=== PATIENT | female | born 1935 | race Caucasian/White ===

== ENCOUNTER 2016-10-20 15:36 | Emergency (ER) | payer MEDICARE, BC ==
[~2016-10-20] VITALS: Ht 157.5 cm; Wt 44.5 kg
[2016-10-20] MEDS ORDERED: LEVO25TA9 PO (15:55)
[2016-10-20] MEDS ORDERED: ESTROGEN (15:57)
--- NOTE | 2016-10-20 17:11 | NUR ---
Patient discharged to home in stable conditon. Written and verbal after care instructions given. Patient verbalizes understanding of instructions.PT WALKS IN STEADY GAIT, DENEIS ANY DIZZINESS, N/V OR ANY OTHER COMPLAIN AT THIS TIME.
[2016-10-20 17:16] VITALS: BP 103/66
== END 2016-10-20 17:22 | disposition home or self-care (01) ==
LOC: ER 15:36
DX: S09.90XA Unspecified injury of head, initial encounter (principal); R22.0 Localized swelling, mass and lump, head; Z88.6 Allergy status to analgesic agent; Z91.011 Allergy to milk products; W01.0XXA Fall on same level from slipping, tripping and stumbling without subsequent striking against object, initial encounter; Y93.89 Activity, other specified; Y99.8 Other external cause status; Y92.89 Other specified places as the place of occurrence of the external cause
CPT/HCPCS: 70450; A4663

== ENCOUNTER 2017-03-19 15:24 | Emergency (ER) | payer MEDICARE, BC ==
[~2017-03-19] VITALS: Ht 154.9 cm; Wt 44.0 kg
[~2017-03-19 15:24] MED LIST: ESTROGEN; LEVO25TA9 PO
[2017-03-19] MEDS ORDERED: TDAP DIPH,PERTUSS,TET VAC/PF 0.5 ML DISP.SYRIN IM ONE ×2 (15:45→16:01)
[2017-03-19] MEDS ORDERED: AMOXICILLIN-CLAVUL 500-125MG TABLET PO ONE (15:45)
[2017-03-19] MEDS ORDERED: AMOXICILLIN-CLAVUL 500-125MG TABLET ONE (16:01)
--- NOTE | 2017-03-19 16:16 | NUR ---
Patient discharged to home in stable conditon. Written and verbal after care instructions given. Patient verbalizes understanding of instructions.
[2017-03-19 16:17] VITALS: BP 154/88
== END 2017-03-19 16:18 | disposition home or self-care (01) ==
LOC: ER 15:25
DX: S61.259A Open bite of unspecified finger without damage to nail, initial encounter (principal); Z88.6 Allergy status to analgesic agent; W54.0XXA Bitten by dog, initial encounter; Y93.89 Activity, other specified; Y92.9 Unspecified place or not applicable; Y99.9 Unspecified external cause status
CPT/HCPCS: 12001; 73140; 90471; 90715; 99284; A4663

== ENCOUNTER 2017-03-21 09:55 | Emergency (ER) | payer MEDICARE, BC ==
[~2017-03-21] VITALS: Ht 152.4 cm; Wt 54.4 kg
--- NOTE | 2017-03-21 10:18 | NUR ---
pt is in room #2a. dr martell evaluated the pt.
--- NOTE | 2017-03-21 10:48 | NUR ---
pt was d/c to home. d/c instructions given to the pt.
--- NOTE | 2017-03-21 10:49 | NUR ---
pt's wound was re-checked by dr martell. no s/s of infection.
[2017-03-21 10:50] VITALS: BP 141/78
== END 2017-03-21 10:50 | disposition home or self-care (01) ==
LOC: ER 09:55
DX: S61.251D Open bite of left index finger without damage to nail, subsequent encounter (principal); W54.0XXD Bitten by dog, subsequent encounter; Z88.6 Allergy status to analgesic agent
CPT/HCPCS: 99283; A4663

== ENCOUNTER 2017-08-25 09:16 | Emergency (ER) | payer MEDICARE, BC ==
[~2017-08-25] VITALS: Ht 154.9 cm; Wt 44.0 kg
--- NOTE | 2017-08-25 10:40 | NUR ---
Patient discharged to home in stable conditon. Written and verbal after care instructions given. Patient verbalizes understanding of instructions.pt walks in steady gait, deneis any dizziness.
[2017-08-25 10:44] VITALS: BP 141/91
== END 2017-08-25 10:45 | disposition home or self-care (01) ==
LOC: ER 09:16
DX: S00.03XA Contusion of scalp, initial encounter (principal); Z88.5 Allergy status to narcotic agent; Z88.8 Allergy status to other drugs, medicaments and biological substances; Z79.899 Other long term (current) drug therapy; W01.10XA Fall on same level from slipping, tripping and stumbling with subsequent striking against unspecified object, initial encounter; Y93.89 Activity, other specified; Y92.89 Other specified places as the place of occurrence of the external cause; Y99.8 Other external cause status
CPT/HCPCS: 70450; A4663

== ENCOUNTER 2019-01-08 10:59 | Emergency (ER) | payer MEDICARE, BC ==
[~2019-01-08] VITALS: Ht 154.9 cm; Wt 44.0 kg
--- NOTE | 2019-01-08 11:20 | NUR ---
, at bedside to see and examine patient.
[2019-01-08] MEDS ORDERED: NEOMY/BACITRA/POLYMYXIN B OINT UD PACKET TP ONE ×2 (11:30→11:34)
[2019-01-08] MEDS ORDERED: ACETAMINOPHEN ES 500 MG TABLET PO ONE (11:30)
[2019-01-08] MEDS ORDERED: ACETAMINOPHEN ES 500 MG TABLET ONE (11:33)
--- NOTE | 2019-01-08 12:11 | NUR ---
Patient discharged to home in stable conditon. Written and verbal after care instructions given. Patient verbalizes understanding of instructions.
[2019-01-09] MEDS ORDERED: FAMO40TA71 PO (13:07)
[2019-01-09] MEDS ORDERED: ESTRACE VAG CREAM VG (13:07)
[2019-01-10] MEDS ORDERED: AMOX-430 PO (11:06)
== END 2019-01-08 12:12 | disposition home or self-care (01) ==
LOC: ER 10:59
DX: S51.011A Laceration without foreign body of right elbow, initial encounter (principal); S81.811A Laceration without foreign body, right lower leg, initial encounter; S60.052A Contusion of left little finger without damage to nail, initial encounter; S80.01XA Contusion of right knee, initial encounter; S00.81XA Abrasion of other part of head, initial encounter; Z88.5 Allergy status to narcotic agent; Z88.8 Allergy status to other drugs, medicaments and biological substances; Z79.899 Other long term (current) drug therapy; Z90.710 Acquired absence of both cervix and uterus; Z90.89 Acquired absence of other organs; W54.0XXA Bitten by dog, initial encounter; Y93.89 Activity, other specified; Y92.89 Other specified places as the place of occurrence of the external cause; Y99.8 Other external cause status
CPT/HCPCS: 73130; A4217; A4663; A9150

== ENCOUNTER 2019-01-09 11:48 | Inpatient (IN) | payer MEDICARE, BC ==
[~2019-01-09] VITALS: Ht 154.9 cm; Wt 44.5 kg
[2019-01-09] MEDS: LEVOTHYROXINE SODIUM 25 MCG TABLET PO SCH (07:00)
--- NOTE | 2019-01-09 12:00 | NUR ---
wound dressing cleaned and area cleansed with normal saline, no s/s of infection noted.
--- NOTE | 2019-01-09 12:16 | NUR ---
at bedside to examine wounds.
[2019-01-09] MEDS ORDERED: PIPERACILLIN SODIUM/TAZOBACTAM 3.375 G in IV DEXTROSE 5% 50 ML IV ONE (12:30)
[2019-01-09] MEDS ORDERED: PIPERACILLIN/TAZOBACTAM/D5W 50 ML IV ONE (12:36)
--- NOTE | 2019-01-09 12:43 | NUR ---
PAGED EPIC FOR PANEL CALL. AWAITING CALLBACK.
[2019-01-09 12:52] LABS: BASOPHILS % (AUTO) 0.5 % (0.0-2.0); EOSINOPHILS # (AUTO) 0.3 K/uL (0.0-0.7); EOSINOPHILS % (AUTO) 3.4 % (0.0-7.0); HEMATOCRIT 43.9 % (31.2-41.9); HEMOGLOBIN 14.9 g/dL (10.9-14.3); LYMPHOCYTES # (AUTO) 1.2 K/uL (20.0-40.0); LYMPHOCYTES % (AUTO) 14.4 % (20.5-51.5); MEAN CORPUSCULAR HEMOGLOBIN 31.4 uug (24.7-32.8); MEAN CORPUSCULAR HGB CONC 34 g/dL (32.3-35.6); MEAN CORPUSCULAR VOLUME 92.6 fL (75.5-95.3); MONOCYTES # (AUTO) 0.9 K/uL (2.0-10.0); MONOCYTES % (AUTO) 10.1 % (0.0-11.0); NEUTROPHILS % (AUTO) 71.6 % (38.5-71.5); PLATELET COUNT (AUTO) 147 K/uL (179-408); RED BLOOD CELL COUNT(AUTO) 4.73 MIL/uL (3.63-4.92); WHITE BLOOD COUNT (AUTO) 8.4 K/uL (3.8-11.8)
--- NOTE | 2019-01-09 12:54 | NUR ---
ER MD SPEAKING W/ EPIC MD ON PHONE RE PT'S ADMISSION.
[2019-01-09 13:00] LABS: ALANINE AMINOTRANSFERASE 14 U/L (14-59); ALKALINE PHOSPHATASE 90 U/L (50-136); ASPARTATE AMINOTRANSFERASE 13 U/L (15-37); BILIRUBIN,TOTAL 0.8 mg/dL (0.2-1.0); CARBON DIOXIDE 26 mmol/L (21-32); CHLORIDE 106 mmol/L (98-107); CREATININE 0.6 mg/dL (0.6-1.3); GLUCOSE 90 mg/dL (74-106); POTASSIUM 4.1 mmol/L (3.5-5.1); UREA NITROGEN, BLOOD 19 mg/dL (7-18)
[2019-01-09] MEDS ORDERED: NEOMY/BACITRA/POLYMYXIN B OINT UD PACKET TP ONE ×2 (13:06→13:15)
[2019-01-09] MEDS ORDERED: FAMO40TA71 PO (13:07)
[2019-01-09] MEDS ORDERED: ESTRACE VAG CREAM VG (13:07)
--- NOTE | 2019-01-09 13:50 | NUR ---
Received pt. via wheel chair. Pt. is alert oriented x4 IV in R forearm 20 gauge intact patent hep lock. Safety measures in place. Call light within reach. Will continue to monitor pt.
--- NOTE | 2019-01-09 13:53 | NUR ---
patient taken up via wheelchair, by Rubin Barron. vitals stable. no c/of pain IV zosyn completed.
[2019-01-09 15:24] VITALS: BP 149/74
--- NOTE | 2019-01-09 16:20 | NUR ---
Called Dr. Broderick office for orders for pt. No new orders at the moment. Will wait for orders from
[2019-01-09] MEDS ORDERED: MAGNESIUM HYDROXIDE 30 ML LIQUID UDC PO PRN (16:45)
[2019-01-09] MEDS ORDERED: Z GUARD REMEDY PASTE 57 GM TUBE TOP PRN (16:45)
[2019-01-09] MEDS ORDERED: ACETAMINOPHEN 325 MG TABLET PO PRN (16:45)
[2019-01-09] MEDS ORDERED: ONDANSETRON 4 MG/2 ML VIAL IV PRN (16:45)
[2019-01-09] MEDS ORDERED: ZOLPIDEM 5 MG TABLET PO PRN (16:45)
--- NOTE | 2019-01-09 19:00 | NUR ---
Pt. resting in bed alert oriented x4. IV in R forearm 20 gauge intact patent hep lock. Family at bedside. All needs met. Safety measures in place. Will endorse to PM nurse
[2019-01-09] MEDS ORDERED: VANCOMYCIN IV 750 MG in IV DEXTROSE 5% 250 ML IV SCH (19:30)
--- NOTE | 2019-01-09 19:34 | NUR ---
CLINICAL PHARMACY NOTE:VANCOMYCIN DOSING Request for vancomycin dosing on 83 y/o female 154.94cm 44.4kg for cellulitis Temp 98.6f BUN 19 Scr 0.6 WBC 8.4 also on Zosyn Start vancomycin 750mg ivpb q24h estimate trough 13. Will order trough prior to 4th dose. Will continue to monitor
--- NOTE | 2019-01-09 19:45 | NUR ---
PATIENT ALERT ORIENTED, NO SOB NO CHEST PAIN, NO COMPLAIN OF PAIN AT THIS TIME. FAMILY AT BEDSIDES, CONT TO MONITOR.
[2019-01-09 20:16] VITALS: BP 137/63
[2019-01-09] MEDS ORDERED: BACITRACIN/POLYMYXIN B OINT 15 GM TUBE TOP SCH (21:00)
[2019-01-09] MEDS: NEOMY/BACITRAC/POLYMI OINT 28.35 GM TUBE TOP SCH (21:39)
[2019-01-09] MEDS ORDERED: PIPERACILLIN SODIUM/TAZOBACTAM 3.375 G in IV DEXTROSE 5% 50 ML IV SCH (22:00)
[2019-01-09] MEDS: PIPERACILLIN/TAZOBACTAM/D5W 3.375 G in PREMIXED 1 EACH IV SCH (22:33)
[2019-01-10] MEDS ORDERED: diphenhydrAMINE 50 MG/1 ML VIAL IV PRN (00:15)
--- NOTE | 2019-01-10 00:17 | NUR ---
PATIENT COMPLAIN OF SCALP ITCHING AFTER VANCO MEDICATION WAS GIVEN, NOTIFY DR. WILSON WITH ORDER OF BENADRYL IV 25MG ONE TIME DOSE FOR ITCHING.
--- NOTE | 2019-01-10 00:30 | NUR ---
PATIENT WAS OFFERED BENADRYL FOR ITCHING OF THE SCALP, BUT PATIENT REFUSED THE MEDICATIONS STATED THAT SHE NOT ITCHING ANYMORE, CONT TO MONITOR.
[2019-01-10] MEDS: PIPERACILLIN/TAZOBACTAM/D5W 3.375 G in PREMIXED 1 EACH IV SCH (04:44)
[2019-01-10] MEDS: LEVOTHYROXINE SODIUM 25 MCG TABLET PO SCH (06:01)
[2019-01-10 06:21] LABS: CARBON DIOXIDE 25 mmol/L (21-32); CHLORIDE 108 mmol/L (98-107); CHOLESTEROL 139 mg/dL (<200); CREATININE 0.8 mg/dL (0.6-1.3); GLUCOSE 96 mg/dL (74-106); HDL CHOLESTEROL 67 mg/dL (40-60); MAGNESIUM 2.3 mg/dL (1.8-2.4); PHOSPHOROUS 4.2 mg/dL (2.5-4.9); POTASSIUM 3.8 mmol/L (3.5-5.1); TRIGLYCERIDES 40 MG/DL (30-150); UREA NITROGEN, BLOOD 19 mg/dL (7-18)
[2019-01-10 06:28] LABS: BASOPHILS % (AUTO) 0.5 % (0.0-2.0); EOSINOPHILS # (AUTO) 0.4 K/uL (0.0-0.7); EOSINOPHILS % (AUTO) 5.4 % (0.0-7.0); HEMATOCRIT 40.9 % (31.2-41.9); HEMOGLOBIN 13.9 g/dL (10.9-14.3); LYMPHOCYTES # (AUTO) 1.1 K/uL (20.0-40.0); LYMPHOCYTES % (AUTO) 15.6 % (20.5-51.5); MEAN CORPUSCULAR HEMOGLOBIN 31.5 uug (24.7-32.8); MEAN CORPUSCULAR HGB CONC 34 g/dL (32.3-35.6); MEAN CORPUSCULAR VOLUME 92.5 fL (75.5-95.3); MONOCYTES # (AUTO) 0.7 K/uL (2.0-10.0); MONOCYTES % (AUTO) 10.7 % (0.0-11.0); NEUTROPHILS # (AUTO) 4.6 K/uL (1.8-8.9); NEUTROPHILS % (AUTO) 67.8 % (38.5-71.5); PLATELET COUNT (AUTO) 141 K/uL (179-408); RED BLOOD CELL COUNT(AUTO) 4.42 MIL/uL (3.63-4.92); WHITE BLOOD COUNT (AUTO) 6.8 K/uL (3.8-11.8)
--- NOTE | 2019-01-10 07:17 | NUR ---
PATIENT SLEPT MOST OF THE NIGHT, NO FURTHER ITCHING OF THE SCALP NOTED AT THIS TIME. ASSISTED WITH TOILETING, NO COMPLAIN OF PAIN AT THIS TIME. CONT TO MONITOR.
--- NOTE | 2019-01-10 08:00 | NUR ---
Received patient awake in bed. AAOx4. In no acute distress. IV on R FA receiving IV zosyn at this time. Tolerating well. Safety and comfort measures implemented. Bed in lowest and locked position. Call light within reach. Will continue to monitor throughout shift.
[2019-01-10] MEDS: NEOMY/BACITRAC/POLYMI OINT 28.35 GM TUBE TOP SCH (08:36)
[2019-01-10] MEDS ORDERED: FAMOTIDINE 20 MG TABLET PO SCH ×3 (09:00→21:00)
--- NOTE | 2019-01-10 09:38 | NUR ---
CLINICAL PHARMACY NOTE:VANCOMYCIN DOSING S To continue vancomycin dosing on 83 y/o female for cellulitis O Temp 98f BUN 19 Scr 0.8 WBC 6.8 ht 155 cm wt 44 kg Plan Will change vanco dose to vancomycin 750mg ivpb q36h estimate trough 15 mcg/ml. 2nd dose on 01/11 at 0830. Will order trough prior to 4th dose (not yet ordered). Will monitor renal function & adjust the dose if needed. Will continue to monitor
[2019-01-10] MEDS ORDERED: AMOX-430 PO (11:06)
[2019-01-10 11:14] VITALS: BP 115/81
--- NOTE | 2019-01-10 12:30 | NUR ---
Discharge orders in place. In no acute distress. VSS. Patient verbalizes feeling much better. Provided exit care and education on aftercare. Pictures taken, ID band and IV removed. Patient discharged with daughter via private car.
[2019-01-11] MEDS ORDERED: VANCOMYCIN IV 750 MG in IV DEXTROSE 5% 250 ML IV SCH (08:30)
== END 2019-01-10 12:45 | disposition home or self-care (01) | DRG 603 ==
LOC: ER 11:48 → MEDSURG3 13:27
PROVIDERS: ADMIT Internal Medicine; ATTEND Internal Medicine
DX: L03.211 Cellulitis of face (principal); L03.114 Cellulitis of left upper limb; L03.113 Cellulitis of right upper limb; S61.432D Puncture wound without foreign body of left hand, subsequent encounter; S01.4 Open wound of cheek and temporomandibular area; W54.0XXD Bitten by dog, subsequent encounter; E03.9 Hypothyroidism, unspecified; Z90.710 Acquired absence of both cervix and uterus; S80.211D Abrasion, right knee, subsequent encounter; W18.39XD Other fall on same level, subsequent encounter; K22.70 Barrett's esophagus without dysplasia
CPT/HCPCS: 36415; 73130; 83605; 83735; 84100; 85025; 87040; A4217; G0378; J2543; J3370; J7040; J7060